=== PATIENT | male | born 1990 | race Caucasian/White ===

== ENCOUNTER 2016-10-29 06:19 | Emergency (ER) | payer BC ==
[2016-10-29] MEDS ORDERED: ONDANSETRON 4 MG/2 ML VIAL IVP STA ×2 (06:46→08:21)
[2016-10-29] MEDS ORDERED: KETOROLAC 30 MG/ML 1 ML VIAL IVP STA (06:46)
[2016-10-29] MEDS ORDERED: SODIUM CHLORIDE 0.9% 500 ML IV STA (06:46)
--- NOTE | 2016-10-29 06:48 | ED ---
General Adult HPI - General Source: patient, RN notes reviewed Mode of arrival: ambulatory Limitations: no limitations <Pierre Roberson - Last Filed: 10/29/16 06:47> <Carlos Johnson - Last Filed: 10/29/16 08:24> - General Chief complaint: Abdominal Pain Stated complaint: Abd pain Time Seen by Provider: 10/29/16 06:30 - History of Present Illness Initial comments: This is a 26-year-old male who presents emergency Department complaining of nausea vomiting diarrhea since 1:00 in the morning. Patient states she has some slight discomfort in the epigastric region. Patient denies any fever or chills. Patient denies any chest pain difficulty breathing or shortness of breath. Patient denies any back pain. patient denies any recent injury or trauma. Patient denies headache patient denies numbness weakness. (Pierre Roberson) - Related Data Home Medications Medication Instructions Recorded Confirmed Ibuprofen [Motrin] 600 - 800 mg PO Q6HR PRN 10/29/16 10/29/16 Previous Rx's Medication Instructions Recorded Ondansetron Odt [Zofran Odt] 4 mg PO Q8HR PRN #10 tab 10/29/16 Pantoprazole Sodium [Protonix] 20 mg PO DAILY #14 tablet. 10/29/16 Allergies Allergy/AdvReac Type Severity Reaction Status Date / Time No Known Allergies Allergy Verified 10/29/16 07:37 Review of Systems ROS Other: All systems not noted in ROS Statement are negative. <Pierre Roberson - Last Filed: 10/29/16 06:47> ROS Other: All systems not noted in ROS Statement are negative. <Carlos Johnson - Last Filed: 10/29/16 08:24> ROS Statement: Those systems with pertinent positive or pertinent negative responses have been documented in the HPI. Past Medical History Past Medical History: No Reported History History of Any Multi-Drug Resistant Organisms: None Reported Past Surgical History: Appendectomy Additional Past Surgical History / Comment(s): sx to rx testicle at Past Psychological History: Depression Smoking Status: Current every day smoker Past Alcohol Use History: None Reported Past Drug Use History: Marijuana <Pierre Roberson - Last Filed: 10/29/16 06:47> General Exam Limitations: no limitations <Pierre Roberson - Last Filed: 10/29/16 06:47> <Carlos Johnson - Last Filed: 10/29/16 08:24> - General Exam Comments Initial Comments: GENERAL: Patient is well-developed and well-nourished. Patient is nontoxic and well- hydrated and is in milde distress. ENT: Neck is soft and supple. No significant lymphadenopathy is noted. Oropharynx is clear. Moist mucous membranes. Neck has full range of motion without eliciting any pain. EYES: The sclera were anicteric and conjunctiva were pink and moist. Extraocular movements were intact and pupils were equal round and reactive to light. Eyelids were unremarkable. PULMONARY: Unlabored respirations. Good breath sounds bilaterally. No audible rales rhonchi or wheezing was noted. CARDIOVASCULAR: There is a regular rate and rhythm without any murmurs gallops or rubs. ABDOMEN: Soft and nontender with normal bowel sounds. No palpable organomegaly was noted. There is no palpable pulsatile mass. SKIN: Skin is clear with no lesions or rashes and otherwise unremarkable. NEUROLOGIC: Patient is alert and oriented x3. Cranial nerves II through XII are grossly intact. Motor and sensory are also intact. Normal speech, volume and content. Symmetrical smile. C MUSCULOSKELETAL: Normal extremities with adequate strength and full range of motion. No lower extremity swelling or edema. No calf tenderness. LYMPHATICS: No significant lymphadenopathy is noted PSYCHIATRIC: Normal psychiatric evaluation. Normal interpersonal interactions appears functionally intact in deals appropriately with others. No signs of depression. No signs of anxiety. (Pierre Roberson) Course <Pierre Roberson - Last Filed: 10/29/16 06:47> <Carlos Johnson - Last Filed: 10/29/16 08:24> Vital Signs 10/29/16 06:23 Temperature 97.8 F Pulse Rate 74 Respiratory 18 Rate Blood Pressure 141/82 O2 Sat by Pulse 100 Oximetry - Reevaluation(s) Reevaluation #1: 10/29/16 08:21 The patient was reevaluated by myself. He still has some slight nausea but otherwise feeling much improved. The presentation is consistent with gastritis. Patient will be discharged on appropriate medication I did recommend follow-up with gastroenterology he does have a mother who is a physician family service assistant so either she can help arrange follow-up for him or he can follow up locally. (Carlos Johnson) Medical Decision Making <Pierre Roberson - Last Filed: 10/29/16 06:47> - Lab Data Result diagrams: 10/29/16 06:30 10/29/16 06:30 <Carlos Johnson - Last Filed: 10/29/16 08:24> - Medical Decision Making Dr. Johnson be taking over the care of this patient at 7 AM (Pierre Roberson) - Lab Data Lab Results 10/29/16 10/29/16 Range/Units 06:30 06:30 WBC 12.0 H (3.8-10.6) k/uL RBC 4.89 (4.30-5.90) m/uL Hgb 15.1 (13.0-17.5) gm/dL Hct 45.0 (39.0-53.0) % MCV 92.1 (80.0-100.0) fL MCH 30.8 (25.0-35.0) pg MCHC 33.5 (31.0-37.0) g/dL RDW 12.7 (11.5-15.5) % Plt Count 190 (150-450) k/uL Neutrophils % 75 % Lymphocytes % 17 % Monocytes % 6 % Eosinophils % 2 % Basophils % 0 % Neutrophils # 8.9 H (1.3-7.7) k/uL Lymphocytes # 2.0 (1.0-4.8) k/uL Monocytes # 0.7 (0-1.0) k/uL Eosinophils # 0.2 (0-0.7) k/uL Basophils # 0.0 (0-0.2) k/uL Sodium 141 (137-145) mmol/L Potassium 4.2 (3.5-5.1) mmol/L Chloride 109 H (98-107) mmol/L Carbon Dioxide 20 L (22-30) mmol/L Anion Gap 12 mmol/L BUN 17 (9-20) mg/dL Creatinine 0.79 (0.66-1.25) mg/dL Est GFR (MDRD) Af Amer >60 (>60 ml/min/1.73 sqM) Est GFR (MDRD) Non-Af >60 (>60 ml/min/1.73 sqM) Glucose 95 (74-99) mg/dL Calcium 9.3 (8.4-10.2) mg/dL Total Bilirubin 0.5 (0.2-1.3) mg/dL AST 27 (17-59) U/L ALT 33 (21-72) U/L Alkaline Phosphatase 62 (38-126) U/L Total Protein 7.7 (6.3-8.2) g/dL Albumin 4.6 (3.5-5.0) g/dL Amylase 61 (30-110) U/L Lipase 80 (23-300) U/L Disposition <Pierre Roberson - Last Filed: 10/29/16 06:47> <Carlos Johnson - Last Filed: 10/29/16 08:24> Clinical Impression: Abdominal pain, Gastritis Disposition: HOME SELF-CARE Condition: Good Instructions: Abdominal Pain (ED), Gastritis (ED) Prescriptions: Ondansetron Odt [Zofran Odt] 4 mg PO Q8HR PRN #10 tab PRN Reason: Nausea Pantoprazole Sodium [Protonix] 20 mg PO DAILY #14 tablet.dr Referrals: None,Stated [Primary Care Provider] - 1-2 days Kayleigh Givens MD [STAFF PHYSICIAN] - 1-2 days
[2016-10-29 07:19] LABS: Basophils % (A) 0 %; CHCM 33.8; Eosinophils # (A) 0.2 k/uL (0-0.7); Eosinophils % (A) 2 %; HDW 2.26; HGB 15.1 gm/dL (13.0-17.5); Luc # (Auto) 0.15; Luc % (Auto) 1; Lymphocytes % (A) 17 %; MCH 30.8 pg (25.0-35.0); MCHC 33.5 g/dL (31.0-37.0); MCV 92.1 fL (80.0-100.0); Mean Platelet Volume 7.2; Monocytes # (A) 0.7 k/uL (0-1.0); Monocytes % (A) 6 %; Neutrophils # (A) 8.9 k/uL (1.3-7.7); Neutrophils % (A) 75 %; RBC 4.89 m/uL (4.30-5.90); RDW 12.7 % (11.5-15.5); WBC (Perox) 11.78
[2016-10-29 07:31] LABS: ALT 33 U/L (21-72); AST 27 U/L (17-59); Alkaline Phosphatase 62 U/L (38-126); Amylase 61 U/L (30-110); Anion Gap 12 mmol/L; Blood Urea Nitrogen 17 mg/dL (9-20); Calcium 9.3 mg/dL (8.4-10.2); Carbon Dioxide 20 mmol/L (22-30); Chloride 109 mmol/L (98-107); Glucose 95 mg/dL (74-99); Non-African American GFR(MDRD) >60 (>60 ml/min/1.73 sqM); Potassium 4.2 mmol/L (3.5-5.1); Sodium 141 mmol/L (137-145); Total Bilirubin 0.5 mg/dL (0.2-1.3); Total Protein 7.7 g/dL (6.3-8.2)
[2016-10-29] MEDS ORDERED: FAMOTIDINE 20 MG/2 ML VIAL IV STA (08:21)
[2016-10-29 08:27] LABS: Appearance,Urine Clear (Clear); Bilirubin,Urine Negative (Negative); Glucose,Urine (UA) Negative (Negative); Ketones,Urine Negative (Negative); Leukocyte Esterase,Urine Negative (Negative); Nitrite,Urine Negative (Negative); PH, Urine 5.5 (5.0-8.0); Protein,Urine Negative (Negative); Specific Gravity,Urine 1.022 (1.001-1.035); UA Billing (MACRO vs. MICRO) CHEM; Urobilinogen,Urine <2.0 mg/dL (<2.0)
[2016-10-29 09:08] VITALS: BP 110/64; PULSE 59; RESP 17; TEMP 97.4
== END 2016-10-29 09:08 | disposition home or self-care (01) ==
LOC: EC 06:19
DX: K29.70 Gastritis, unspecified, without bleeding (principal); R11.2 Nausea with vomiting, unspecified; F17.200 Nicotine dependence, unspecified, uncomplicated; Z90.49 Acquired absence of other specified parts of digestive tract
CPT/HCPCS: 36415; 80053; 82150; 83690; 85025; 81003; 99284; 96374; 96375 ×2; 96376; 96361 ×2; J2405; J1885